=== PATIENT | male | born 1930 | race African-American/Black ===

== ENCOUNTER 2017-10-02 18:29 | Inpatient (IN) | payer MEDICARE, MEDICAID ==
[~2017-10-02] VITALS: Ht 175.3 cm; Wt 75.5 kg
[~2017-10-02 18:29] MED LIST: ACET-2178 PO; AMLO10TA80 PO; CLON0.1T PO; DOCU-150 PO; DOUNEB HHN; IBUP-2028 PO; KEPP500 PO; LEVEMIR SUBCUT; MILK OF MAGNESIA PO
[2017-10-02 21:00] LABS: EOSINOPHILS % 4.3 % (0.0-5.0); HEMATOCRIT. 36.7 % (42.0-52.0); HEMOGLOBIN. 11.1 g/dL (14.0-18.0); LYMPHOCYTES % 12.8 % (20.0-50.0); MEAN CORPUSCULAR HEMOGLOBIN 23.4 pg (28.0-32.0); MEAN CORPUSCULAR VOLUME 77.3 fL (80.0-94.0); MEAN PLATELET VOLUME 8.2 fl (7.4-10.4); NEUTROPHILS % 73.9 % (40.0-76.0); PLATELET 166 x1000/uL (130-400); RED BLOOD CELL COUNT 4.76 mill/uL (4.7-6.1); RED CELL DISTRIBUTION WIDTH 17.4 % (11.6-14.6)
[2017-10-02 21:15] LABS: CARBON DIOXIDE 22 mEq/L (21-32); CHLORIDE 105 mEq/L (98-107); ETHANOL BLOOD < 10 mg/dL
[2017-10-03] MEDS ORDERED: ASPIRIN 81MG TABLET PO ONE (00:15)
[2017-10-03 00:39] LABS: CLARITY URINE CLEAR (CLEAR); COLOR URINE YELLOW (YELLOW); GLUCOSE URINE NEGATIVE (NEGATIVE); KETONES URINE NEGATIVE (NEGATIVE); LEUKOCYTE ESTERASE URINE NEGATIVE (NEGATIVE); NITRITE URINE NEGATIVE (NEGATIVE); OCCULT BLOOD URINE NEGATIVE (NEGATIVE); PROTEIN URINE NEGATIVE (NEGATIVE); SPECIFIC GRAVITY URINE 1.018 (1.005-1.030); UROBILINOGEN URINE 0.2 E.U./dL (0.2-1.0)
[2017-10-03 00:52] LABS: *AMPHETAMINES SCREEN URINE NEGATIVE (NEGATIVE); *BARBITURATES SCREEN URINE NEGATIVE (NEGATIVE); *BENZODIAZEPINES SCREEN URINE NEGATIVE (NEGATIVE); *COCAINE SCREEN URINE NEGATIVE (NEGATIVE); CANNABINOID URINE SCREEN NEGATIVE (NEGATIVE); METHADONE URINE SCREEN NEGATIVE (NEGATIVE); OPIATES URINE SCREEN NEGATIVE (NEGATIVE); PHENCYCLIDINE URINE SCREEN NEGATIVE (NEGATIVE)
[2017-10-03 04:35] VITALS: BP 130/62
[2017-10-03] MEDS ORDERED: HYDROCODONE/ACETAMINOPHEN 5/325MG TABLET PO PRN (06:30)
[2017-10-03] MEDS ORDERED: IBUPROFEN 600MG TABLET PO PRN (06:30)
[2017-10-03] MEDS ORDERED: DEXTROSE 50% WATER 50ML SYRINGE IV PRN (06:30)
[2017-10-03] MEDS ORDERED: LORAZEPAM 2MG/ML CPJ IV PRN (06:30)
[2017-10-03] MEDS ORDERED: ACETAMINOPHEN 325MG TABLET PO PRN ×2 (06:30→07:00)
[2017-10-03] MEDS ORDERED: MAGNESIUM HYDROXIDE PO PRN (06:30)
[2017-10-03] MEDS ORDERED: DOUNEB HHN PRN (06:30)
[2017-10-03] MEDS ORDERED: CLONIDINE 0.1MG TABLET PO PRN (06:30)
[2017-10-03] MEDS ORDERED: IPRATROPIUM/ALBUTEROL 0.5-3(2.5)MG/3ML NEB HHN PRN (07:00)
[2017-10-03] MEDS ORDERED: MAGNESIUM HYDROXIDE 400MG/5ML 30ML UDC PO PRN (07:00)
[2017-10-03] MEDS: BLOOD SUGAR DIAGNOSTIC STRIP TEST SCH ×4 (07:45→20:54)
[2017-10-03] MEDS: SODIUM CHLORIDE 0.45% 1,000 ML IV SCH (07:46)
[2017-10-03] MEDS: INSULIN LISPRO 100 UNITS/ML SUBCUT SCH ×4 (07:50→20:55)
[2017-10-03 08:00] VITALS: BP 137/62
[2017-10-03] MEDS ORDERED: LEVEMIR 10 UNIT SUBCUT SCH (09:00)
[2017-10-03 09:10] LABS: BASOPHILS % 1.1 % (0.0-2.0); EOSINOPHILS % 5.4 % (0.0-5.0); HEMATOCRIT. 36.9 % (42.0-52.0); HEMOGLOBIN. 11.5 g/dL (14.0-18.0); LYMPHOCYTES % 14.4 % (20.0-50.0); MEAN CORPUSCULAR HEMOGLOBIN 23.9 pg (28.0-32.0); MEAN CORPUSCULAR VOLUME 76.7 fL (80.0-94.0); MEAN PLATELET VOLUME 8.5 fl (7.4-10.4); NEUTROPHILS % 72.1 % (40.0-76.0); PLATELET 156 x1000/uL (130-400); RED BLOOD CELL COUNT 4.82 mill/uL (4.7-6.1)
[2017-10-03] MEDS: ENOXAPARIN 30MG/0.3ML SYR SUBCUT SCH (09:15)
[2017-10-03] MEDS: LEVETIRACETAM 500MG TABLET PO SCH ×2 (09:15→20:54)
[2017-10-03] MEDS: AMLODIPINE 10MG TABLET PO SCH (09:15)
[2017-10-03] MEDS: DOCUSATE SODIUM 100MG CAPSULE PO SCH ×2 (09:15→16:48)
[2017-10-03] MEDS: INSULIN DETEMIR UD 100 UNITS/ML SYR SUBCUT SCH (09:38)
[2017-10-03 10:04] LABS: CARBON DIOXIDE 24 mEq/L (21-32); CHLORIDE 106 mEq/L (98-107)
[2017-10-03 12:00] VITALS: BP 120/62
[2017-10-03] MEDS ORDERED: MIDAZOLAM HCL 2 MG/2 ML VIAL IV PRN (12:00)
[2017-10-03 12:22] LABS: T4 FREE 1.06 ng/dL (0.76-1.46)
[2017-10-03 16:00] VITALS: BP 118/64
[2017-10-03 16:45] LABS: CREATINE KINASE 39 IU/L (39-308); CREATINE KINASE MB FRACTION 0.7 ng/mL (0.5-3.6); TROPONIN I < 0.02 ng/mL (0.00-0.04)
[2017-10-03 20:00] VITALS: BP_SYST 126; BP_SYST 129; BP_DIAS 51; BP_DIAS 55
[2017-10-03 23:36] LABS: CREATINE KINASE 40 IU/L (39-308); TROPONIN I < 0.02 ng/mL (0.00-0.04)
[2017-10-04] VITALS: BP 125/80
[2017-10-04] MEDS: SODIUM CHLORIDE 0.45% 1,000 ML IV SCH ×3 (01:09→22:30)
[2017-10-04 04:00] VITALS: BP 141/72
[2017-10-04] MEDS: BLOOD SUGAR DIAGNOSTIC STRIP TEST SCH ×4 (06:37→21:12)
[2017-10-04 07:23] VITALS: BP 114/72
[2017-10-04] MEDS: INSULIN LISPRO 100 UNITS/ML SUBCUT SCH ×4 (07:42→21:00)
[2017-10-04 08:04] LABS: CREATINE KINASE 40 IU/L (39-308)
[2017-10-04 08:05] LABS: CREATINE KINASE MB FRACTION 0.6 ng/mL (0.5-3.6); TROPONIN I < 0.02 ng/mL (0.00-0.04)
[2017-10-04] MEDS: LEVETIRACETAM 500MG TABLET PO SCH ×2 (09:15→21:25)
[2017-10-04] MEDS: DOCUSATE SODIUM 100MG CAPSULE PO SCH ×2 (09:15→18:04)
[2017-10-04] MEDS: AMLODIPINE 10MG TABLET PO SCH (09:15)
[2017-10-04] MEDS: ENOXAPARIN 30MG/0.3ML SYR SUBCUT SCH (09:16)
[2017-10-04] MEDS: INSULIN DETEMIR UD 100 UNITS/ML SYR SUBCUT SCH (10:49)
[2017-10-04 12:00] VITALS: BP 133/73
[2017-10-04 16:03] VITALS: BP 120/53
[2017-10-04 20:00] VITALS: BP_SYST 127; BP_SYST 128; BP_SYST 142; BP_DIAS 56; BP_DIAS 60; BP_DIAS 67
[2017-10-05] VITALS (8 sets, daily range): BP systolic 109–155; BP diastolic 61–93
[2017-10-05] MEDS: SODIUM CHLORIDE 0.45% 1,000 ML IV SCH (01:10)
[2017-10-05] MEDS: BLOOD SUGAR DIAGNOSTIC STRIP TEST SCH ×4 (06:40→21:18)
[2017-10-05 07:37] LABS: BASOPHILS % 1.1 % (0.0-2.0); EOSINOPHILS % 3.2 % (0.0-5.0); HEMATOCRIT. 34.5 % (42.0-52.0); HEMOGLOBIN. 10.6 g/dL (14.0-18.0); LYMPHOCYTES % 17.2 % (20.0-50.0); MEAN CORPUSCULAR HEMOGLOBIN 23.6 pg (28.0-32.0); MEAN CORPUSCULAR VOLUME 76.6 fL (80.0-94.0); MONOCYTES % 9.6 % (2.0-8.0); NEUTROPHILS % 68.9 % (40.0-76.0); PLATELET 132 x1000/uL (130-400); RED CELL DISTRIBUTION WIDTH 17.2 % (11.6-14.6)
[2017-10-05] MEDS: INSULIN LISPRO 100 UNITS/ML SUBCUT SCH ×4 (07:50→21:26)
[2017-10-05] MEDS: DOCUSATE SODIUM 100MG CAPSULE PO SCH ×2 (09:00→16:59)
[2017-10-05] MEDS: AMLODIPINE 10MG TABLET PO SCH (09:36)
[2017-10-05] MEDS: LEVETIRACETAM 500MG TABLET PO SCH ×2 (09:36→21:14)
[2017-10-05] MEDS: ENOXAPARIN 40MG/0.4ML SYR SUBCUT SCH (09:36)
[2017-10-05] MEDS: INSULIN DETEMIR UD 100 UNITS/ML SYR SUBCUT SCH (10:00)
[2017-10-06] VITALS: BP 145/70
[2017-10-06] MEDS: SODIUM CHLORIDE 0.45% 1,000 ML IV SCH (01:10)
[2017-10-06 04:00] VITALS: BP 143/72
[2017-10-06] MEDS: BLOOD SUGAR DIAGNOSTIC STRIP TEST SCH ×2 (06:46→12:20)
[2017-10-06] MEDS: INSULIN LISPRO 100 UNITS/ML SUBCUT SCH ×2 (07:50→13:30)
[2017-10-06 08:00] VITALS: BP 131/75
[2017-10-06] MEDS: DOCUSATE SODIUM 100MG CAPSULE PO SCH (09:00)
[2017-10-06] MEDS: LEVETIRACETAM 500MG TABLET PO SCH (09:51)
[2017-10-06] MEDS: ENOXAPARIN 40MG/0.4ML SYR SUBCUT SCH (09:51)
[2017-10-06] MEDS: AMLODIPINE 10MG TABLET PO SCH (09:51)
[2017-10-06] MEDS: INSULIN DETEMIR UD 100 UNITS/ML SYR SUBCUT SCH (10:00)
[2017-10-06 14:08] VITALS: BP 121/76
== END 2017-10-06 16:30 | DRG 64 ==
LOC: ER 18:29 → 6WST 10-03 00:15 → ENRESERV 10-03 01:57
PROVIDERS: ADMIT Internal Medicine; ATTEND Internal Medicine
DX: I63.9 Cerebral infarction, unspecified (principal); G93.41 Metabolic encephalopathy; E46 Unspecified protein-calorie malnutrition; I50.9 Heart failure, unspecified; G30.9 Alzheimer's disease, unspecified; F02.80 Dementia in other diseases classified elsewhere, unspecified severity, without behavioral disturbance, psychotic disturbance, mood disturbance, and anxiety; D64.9 Anemia, unspecified; E86.0 Dehydration; G40.909 Epilepsy, unspecified, not intractable, without status epilepticus; I11.9 Hypertensive heart disease without heart failure; I70.0 Atherosclerosis of aorta; E78.00 Pure hypercholesterolemia, unspecified; E78.5 Hyperlipidemia, unspecified; I25.10 Atherosclerotic heart disease of native coronary artery without angina pectoris; N28.9 Disorder of kidney and ureter, unspecified; Z95.810 Presence of automatic (implantable) cardiac defibrillator; Z68.24 Body mass index [BMI] 24.0-24.9, adult; Z86.73 Personal history of transient ischemic attack (TIA), and cerebral infarction without residual deficits
CPT/HCPCS: 36415; 70450; 71010; 80048; 80053; 80061; 80305; 81003; 82550; 82553; 82962; 83036; 83880; 84439; 84443; 84484; 85025; 85379; 93005; 93306; 93880; 93970; 97116; 97162; 99285; C1893; G0482; J1650; J1815